=== PATIENT | male | born 1955 | race Two or more races ===

== ENCOUNTER 2020-03-14 16:09 | Inpatient (IN) | payer OTHER ==
[2020-03-14] VITALS (10 sets, daily range): BP systolic 95–193; BP diastolic 43–94
[~2020-03-14] VITALS: Ht 182.9 cm; Wt 108.4 kg
[2020-03-14] MEDS ORDERED: DEXTROSE 50%-WATER 25 GM/50 ML SYRINGE IVP PRN (17:45)
[2020-03-14] MEDS ORDERED: ACETAMINOPHEN 325 MG TABLET PO PRN ×2 (17:45→18:15)
[2020-03-14] MEDS ORDERED: WARFARIN SODIUM 2 MG TABLET PO SCH (18:15)
[2020-03-14 18:58] LABS: GLUCOMETER DEV NAME(LOC) 6N.1; GLUCOSE,POINT OF CARE 188 MG/DL (70-110)
[2020-03-14] MEDS: INSULIN LISPRO 100 UNITS/ML SQ PRN ×2 (19:01→21:14)
[2020-03-14] MEDS: INSULIN LISPRO 100 UNITS/ML SQ SCH (19:57)
[2020-03-14] MEDS: CARVEDILOL 3.125 MG TABLET PO SCH ×3 (21:00→23:20)
[2020-03-14] MEDS: SACUBITRIL/VALSARTAN 49-51 MG TABLET PO SCH ×3 (21:00→23:20)
[2020-03-14] MEDS: INSULIN GLARGINE,HUM.REC.ANLOG 100 UNITS/ML SQ SCH (21:14)
[2020-03-14] MEDS: FAMOTIDINE 20 MG TABLET PO SCH (21:17)
[2020-03-14] MEDS: ATORVASTATIN CALCIUM 40 MG TABLET PO SCH (21:17)
[2020-03-14] MEDS: SENNA 187 MG TABLET PO SCH (21:17)
[2020-03-14] MEDS: SODIUM CHLORIDE 1 GM TABLET PO SCH (21:17)
[2020-03-14] MEDS: DOCUSATE SODIUM 100 MG CAPSULE PO SCH (21:17)
[2020-03-14] MEDS: LevETIRAcetam 250 MG TABLET PO SCH (21:18)
[2020-03-14 23:28] LABS: GLUCOMETER DEV NAME(LOC) 6N.1; GLUCOSE,POINT OF CARE 215 MG/DL (70-110)
[2020-03-15 06:55] LABS: GLUCOMETER DEV NAME(LOC) 6N.1; GLUCOSE,POINT OF CARE 198 MG/DL (70-110)
[2020-03-15] MEDS ORDERED: INSULIN LISPRO 100 UNITS/ML SQ SCH ×2 (07:00→07:30)
[2020-03-15 07:47] LABS: BASOPHILS % (AUTO) 0.1 % (0.0-2.0); EOSINOPHILS % (AUTO) 0.7 % (1.0-6.0); HEMATOCRIT 21.1 % (41-53); LYMPHOCYTES # (AUTO) 0.9 K/uL (1.0-4.8); LYMPHOCYTES % (AUTO) 22.2 % (22.0-44.0); MEAN CORPUSCULAR HEMOGLOBIN 26.3 pg (26.0-34.0); MEAN CORPUSCULAR HGB CONC 33.2 G/dL (31.0-37.0); MEAN CORPUSCULAR VOLUME 79 fL (80-100); MONOCYTES # (AUTO) 0.4 K/uL (0.1-1.0); MONOCYTES % (AUTO) 8.6 % (2.0-9.0); NEUTROPHILS # (AUTO) 2.8 K/uL (1.8-7.7); NEUTROPHILS % (AUTO) 68.4 % (40.0-70.0); RED BLOOD CELL COUNT(AUTO) 2.67 MIL/uL (4.50-5.90); RED CELL DISTRIBUTION WIDTH 16.1 % (11.5-14.5)
[2020-03-15 08:00] LABS: ALANINE AMINOTRANSFERASE 47 U/L (12-78); ALBUMIN 2.4 g/dL (3.4-5.0); ALKALINE PHOSPHATASE 88 U/L (46-116); ANION GAP 5 mmol/L (8-16); ASPARTATE AMINOTRANSFERASE 39 U/L (15-37); BILIRUBIN,TOTAL 0.4 mg/dL (0.1-1.0); CALCIUM, TOTAL 7.9 mg/dL (8.8-10.5); CARBON DIOXIDE 29 mmol/L (22-29); CHLORIDE 105 mmol/L (98-107); CREATININE 1.11 mg/dL (0.60-1.30); GLOMERULAR FILTR. RATE CALC > 60 mL/min (>60); GLUCOSE,RANDOM 231 mg/dL (70-110); POTASSIUM 4.8 mmol/L (3.5-5.1); SODIUM SERUM 139 mmol/L (136-145); TOTAL PROTEIN, SERUM 4.9 g/dL (6.4-8.2); UREA NITROGEN, BLOOD 37 mg/dL (7-18)
[2020-03-15 08:11] LABS: INR 2.1 (0.9-1.1); PROTHROMBIN TIME 20.9 SEC (9.4-11.6)
[2020-03-15] MEDS: AMIODARONE HCL 200 MG TABLET PO SCH (09:11)
[2020-03-15] MEDS: FAMOTIDINE 20 MG TABLET PO SCH ×2 (09:11→20:56)
[2020-03-15] MEDS: ASPIRIN 81 MG EC TABLET PO SCH (09:11)
[2020-03-15] MEDS: SODIUM CHLORIDE 1 GM TABLET PO SCH ×3 (09:11→21:15)
[2020-03-15] MEDS: SACUBITRIL/VALSARTAN 49-51 MG TABLET PO SCH ×2 (09:12→22:11)
[2020-03-15] MEDS: FUROSEMIDE 40 MG TABLET PO SCH (09:12)
[2020-03-15] MEDS: POTASSIUM CHLORIDE 20 MEQ ER TABLET PO SCH (09:12)
[2020-03-15] MEDS: DOCUSATE SODIUM 100 MG CAPSULE PO SCH ×2 (09:13→20:56)
[2020-03-15] MEDS: LevETIRAcetam 250 MG TABLET PO SCH ×2 (09:13→20:57)
[2020-03-15] MEDS: DEXAMETHASONE 2 MG TABLET PO SCH ×2 (09:13→20:56)
[2020-03-15] MEDS: CARVEDILOL 3.125 MG TABLET PO SCH ×2 (09:14→20:57)
[2020-03-15] MEDS: INSULIN LISPRO 100 UNITS/ML SQ SCH ×3 (09:17→16:49)
[2020-03-15] MEDS: INSULIN LISPRO 100 UNITS/ML SQ PRN ×4 (09:18→21:04)
[2020-03-15 09:30] VITALS: BP 113/48
[2020-03-15 10:30] VITALS: BP 101/58
[2020-03-15 11:43] LABS: PLATELET COUNT (AUTO) 53 K/uL (150-450)
[2020-03-15 12:11] LABS: GLUCOMETER DEV NAME(LOC) 6N.1; GLUCOSE,POINT OF CARE 176 MG/DL (70-110)
[2020-03-15 15:00] VITALS: BP 127/60
[2020-03-15 15:33] LABS: BASOPHILS % (AUTO) 0.2 % (0.0-2.0); EOSINOPHILS % (AUTO) 0.6 % (1.0-6.0); HEMATOCRIT 25.4 % (41-53); HEMOGLOBIN 8.4 g/dL (13.5-17.5); LYMPHOCYTES # (AUTO) 0.5 K/uL (1.0-4.8); LYMPHOCYTES % (AUTO) 11.4 % (22.0-44.0); MEAN CORPUSCULAR HEMOGLOBIN 26.4 pg (26.0-34.0); MEAN CORPUSCULAR VOLUME 80 fL (80-100); MONOCYTES # (AUTO) 0.3 K/uL (0.1-1.0); MONOCYTES % (AUTO) 6.5 % (2.0-9.0); NEUTROPHILS # (AUTO) 3.8 K/uL (1.8-7.7); NEUTROPHILS % (AUTO) 81.3 % (40.0-70.0); RED BLOOD CELL COUNT(AUTO) 3.18 MIL/uL (4.50-5.90); RED CELL DISTRIBUTION WIDTH 15.6 % (11.5-14.5)
[2020-03-15] MEDS ORDERED: *CLINICAL-WARFARIN SODIUM DOSING CLINICAL ONE (16:15)
[2020-03-15 16:16] LABS: PLATELET COUNT (AUTO) 58 K/uL (150-450)
[2020-03-15] MEDS ORDERED: WARFARIN SODIUM 2 MG TABLET PO SCH (17:00)
[2020-03-15 17:50] LABS: GLUCOMETER DEV NAME(LOC) 6N.1; GLUCOSE,POINT OF CARE 263 MG/DL (70-110)
[2020-03-15 20:50] VITALS: BP 143/58
[2020-03-15] MEDS: SENNA 187 MG TABLET PO SCH (20:56)
[2020-03-15] MEDS: INSULIN GLARGINE,HUM.REC.ANLOG 100 UNITS/ML SQ SCH (21:03)
[2020-03-15] MEDS: ATORVASTATIN CALCIUM 40 MG TABLET PO SCH (21:15)
[2020-03-15 22:46] LABS: GLUCOMETER DEV NAME(LOC) 6N.1; GLUCOSE,POINT OF CARE 205 MG/DL (70-110)
[2020-03-16] VITALS: BP 136/52
[2020-03-16 07:30] VITALS: BP_SYST 118; BP_SYST 18; BP_DIAS 44
[2020-03-16 08:09] LABS: BASOPHILS % (AUTO) 0.1 % (0.0-2.0); EOSINOPHILS % (AUTO) 0.2 % (1.0-6.0); LYMPHOCYTES # (AUTO) 0.6 K/uL (1.0-4.8); LYMPHOCYTES % (AUTO) 13.8 % (22.0-44.0); MEAN CORPUSCULAR HEMOGLOBIN 25.9 pg (26.0-34.0); MEAN CORPUSCULAR HGB CONC 32.7 G/dL (31.0-37.0); MEAN CORPUSCULAR VOLUME 79 fL (80-100); MONOCYTES # (AUTO) 0.3 K/uL (0.1-1.0); MONOCYTES % (AUTO) 8.2 % (2.0-9.0); NEUTROPHILS # (AUTO) 3.1 K/uL (1.8-7.7); NEUTROPHILS % (AUTO) 77.7 % (40.0-70.0); PLATELET COUNT (AUTO) 43 K/uL (150-450); RED BLOOD CELL COUNT(AUTO) 2.59 MIL/uL (4.50-5.90); RED CELL DISTRIBUTION WIDTH 15.9 % (11.5-14.5)
[2020-03-16 08:18] LABS: PROTHROMBIN TIME 20.6 SEC (9.4-11.6)
[2020-03-16] MEDS: INSULIN LISPRO 100 UNITS/ML SQ SCH ×3 (08:33→17:27)
[2020-03-16] MEDS: INSULIN LISPRO 100 UNITS/ML SQ PRN ×4 (08:34→20:43)
[2020-03-16 08:35] LABS: ALANINE AMINOTRANSFERASE 54 U/L (12-78); ALBUMIN 2.5 g/dL (3.4-5.0); ALKALINE PHOSPHATASE 88 U/L (46-116); ANION GAP 3 mmol/L (8-16); ASPARTATE AMINOTRANSFERASE 38 U/L (15-37); BILIRUBIN,TOTAL 0.5 mg/dL (0.1-1.0); CALCIUM, TOTAL 8.1 mg/dL (8.8-10.5); CARBON DIOXIDE 30 mmol/L (22-29); CHLORIDE 105 mmol/L (98-107); CREATININE 1.07 mg/dL (0.60-1.30); GLOMERULAR FILTR. RATE CALC > 60 mL/min (>60); GLUCOSE,RANDOM 206 mg/dL (70-110); SODIUM SERUM 138 mmol/L (136-145); TOTAL PROTEIN, SERUM 4.8 g/dL (6.4-8.2); UREA NITROGEN, BLOOD 36 mg/dL (7-18)
[2020-03-16 08:45] VITALS: BP 113/52
[2020-03-16] MEDS: FAMOTIDINE 20 MG TABLET PO SCH (08:50)
[2020-03-16] MEDS: AMIODARONE HCL 200 MG TABLET PO SCH (08:51)
[2020-03-16] MEDS: DOCUSATE SODIUM 100 MG CAPSULE PO SCH ×2 (08:51→20:40)
[2020-03-16] MEDS: ASPIRIN 81 MG EC TABLET PO SCH (08:51)
[2020-03-16] MEDS: LevETIRAcetam 250 MG TABLET PO SCH ×2 (08:51→20:39)
[2020-03-16] MEDS: SACUBITRIL/VALSARTAN 49-51 MG TABLET PO SCH ×2 (08:51→20:40)
[2020-03-16] MEDS: POTASSIUM CHLORIDE 20 MEQ ER TABLET PO SCH (08:51)
[2020-03-16] MEDS: CARVEDILOL 3.125 MG TABLET PO SCH ×2 (08:51→20:40)
[2020-03-16] MEDS: SODIUM CHLORIDE 1 GM TABLET PO SCH ×3 (08:51→20:40)
[2020-03-16] MEDS: DEXAMETHASONE 2 MG TABLET PO SCH ×2 (08:52→20:40)
[2020-03-16] MEDS: FUROSEMIDE 40 MG TABLET PO SCH (08:52)
[2020-03-16 08:56] LABS: HEMATOCRIT 20.5 % (41-53); HEMOGLOBIN 6.7 g/dL (13.5-17.5)
[2020-03-16] MEDS: EPOETIN ALFA 10,000 UNITS/ML VIAL SQ SCH (09:35)
[2020-03-16 12:43] LABS: GLUCOMETER DEV NAME(LOC) 6N.1; GLUCOSE,POINT OF CARE 256 MG/DL (70-110)
[2020-03-16 12:43] LABS: GLUCOMETER DEV NAME(LOC) 6N.1; GLUCOSE,POINT OF CARE 195 MG/DL (70-110)
[2020-03-16] MEDS: PANTOPRAZOLE SODIUM 40 MG DR TABLET PO SCH ×2 (12:57→20:39)
[2020-03-16] MEDS ORDERED: PERFLUTREN PROTEIN-A MICROSPHERES 0.22 MG/ML 3 ML VIAL IVP ONE (13:00)
[2020-03-16 15:51] VITALS: BP 143/49
[2020-03-16 18:17] LABS: GLUCOMETER DEV NAME(LOC) 6N.1; GLUCOSE,POINT OF CARE 240 MG/DL (70-110)
[2020-03-16 20:34] VITALS: BP 121/55
[2020-03-16] MEDS: ATORVASTATIN CALCIUM 40 MG TABLET PO SCH (20:39)
[2020-03-16] MEDS: SENNA 187 MG TABLET PO SCH (20:40)
[2020-03-16] MEDS: INSULIN GLARGINE,HUM.REC.ANLOG 100 UNITS/ML SQ SCH (20:41)
[2020-03-16 20:51] LABS: BASOPHILS % (AUTO) 0.1 % (0.0-2.0); EOSINOPHILS % (AUTO) 0 % (1.0-6.0); LYMPHOCYTES # (AUTO) 0.5 K/uL (1.0-4.8); LYMPHOCYTES % (AUTO) 14.9 % (22.0-44.0); MEAN CORPUSCULAR HEMOGLOBIN 25.9 pg (26.0-34.0); MEAN CORPUSCULAR HGB CONC 32.7 G/dL (31.0-37.0); MEAN CORPUSCULAR VOLUME 79 fL (80-100); MONOCYTES # (AUTO) 0.3 K/uL (0.1-1.0); MONOCYTES % (AUTO) 9.2 % (2.0-9.0); NEUTROPHILS # (AUTO) 2.6 K/uL (1.8-7.7); NEUTROPHILS % (AUTO) 75.8 % (40.0-70.0); RED BLOOD CELL COUNT(AUTO) 2.64 MIL/uL (4.50-5.90); RED CELL DISTRIBUTION WIDTH 16.1 % (11.5-14.5)
[2020-03-16 20:58] LABS: HEMOGLOBIN 6.9 g/dL (13.5-17.5)
[2020-03-16 20:59] LABS: PLATELET COUNT (AUTO) 42 K/uL (150-450)
[2020-03-16] MEDS ORDERED: DiphenhydrAMINE HCL 25 MG CAPSULE PO ONE (21:15)
[2020-03-16] MEDS ORDERED: FUROSEMIDE 40 MG/4 ML VIAL IVP ONE (21:15)
[2020-03-16] MEDS ORDERED: SODIUM CHLORIDE 0.9% 500 ML IV ONE (23:10)
[2020-03-16 23:16] LABS: GLUCOMETER DEV NAME(LOC) 6N.1; GLUCOSE,POINT OF CARE 243 MG/DL (70-110)
[2020-03-16 23:50] VITALS: BP 158/70
[2020-03-17] VITALS (15 sets, daily range): BP systolic 105–158; BP diastolic 46–73
[2020-03-17] MEDS ORDERED: FUROSEMIDE 20 MG/2 ML VIAL IVP ONE (00:15)
[2020-03-17 06:09] LABS: GLUCOMETER DEV NAME(LOC) 6N.1; GLUCOSE,POINT OF CARE 207 MG/DL (70-110)
[2020-03-17 07:41] LABS: BASOPHILS % (AUTO) 0.2 % (0.0-2.0); EOSINOPHILS % (AUTO) 0 % (1.0-6.0); HEMATOCRIT 24.2 % (41-53); HEMOGLOBIN 8.4 g/dL (13.5-17.5); LYMPHOCYTES # (AUTO) 0.5 K/uL (1.0-4.8); LYMPHOCYTES % (AUTO) 12.5 % (22.0-44.0); MEAN CORPUSCULAR HEMOGLOBIN 28.1 pg (26.0-34.0); MEAN CORPUSCULAR HGB CONC 34.7 G/dL (31.0-37.0); MEAN CORPUSCULAR VOLUME 81 fL (80-100); MONOCYTES # (AUTO) 0.3 K/uL (0.1-1.0); MONOCYTES % (AUTO) 7.7 % (2.0-9.0); NEUTROPHILS # (AUTO) 3.3 K/uL (1.8-7.7); NEUTROPHILS % (AUTO) 79.6 % (40.0-70.0); PLATELET COUNT (AUTO) 42 K/uL (150-450); RED BLOOD CELL COUNT(AUTO) 2.99 MIL/uL (4.50-5.90); RED CELL DISTRIBUTION WIDTH 16.6 % (11.5-14.5)
[2020-03-17 07:50] LABS: INR 2.1 (0.9-1.1); PROTHROMBIN TIME 21.1 SEC (9.4-11.6)
[2020-03-17] MEDS: INSULIN LISPRO 100 UNITS/ML SQ SCH ×3 (08:02→16:53)
[2020-03-17] MEDS: INSULIN LISPRO 100 UNITS/ML SQ PRN ×4 (08:04→20:55)
[2020-03-17] MEDS: PANTOPRAZOLE SODIUM 40 MG DR TABLET PO SCH ×2 (08:11→20:52)
[2020-03-17] MEDS: SACUBITRIL/VALSARTAN 49-51 MG TABLET PO SCH ×2 (08:11→20:52)
[2020-03-17] MEDS: CARVEDILOL 3.125 MG TABLET PO SCH (08:11)
[2020-03-17] MEDS: FUROSEMIDE 40 MG TABLET PO SCH (08:11)
[2020-03-17] MEDS: DOCUSATE SODIUM 100 MG CAPSULE PO SCH ×2 (08:11→20:52)
[2020-03-17] MEDS: SODIUM CHLORIDE 1 GM TABLET PO SCH ×3 (08:11→20:51)
[2020-03-17] MEDS: LevETIRAcetam 250 MG TABLET PO SCH ×2 (08:11→20:51)
[2020-03-17] MEDS: DEXAMETHASONE 2 MG TABLET PO SCH ×2 (08:11→20:52)
[2020-03-17] MEDS: AMIODARONE HCL 200 MG TABLET PO SCH (08:12)
[2020-03-17] MEDS: POTASSIUM CHLORIDE 20 MEQ ER TABLET PO SCH (08:12)
[2020-03-17 08:13] LABS: ALBUMIN 2.7 g/dL (3.4-5.0); BILIRUBIN,TOTAL 0.7 mg/dL (0.1-1.0); CALCIUM, TOTAL 8.2 mg/dL (8.8-10.5); CREATININE 1.22 mg/dL (0.60-1.30); MAGNESIUM 1.8 mg/dL (1.80-2.40); POTASSIUM 4.7 mmol/L (3.5-5.1); TOTAL PROTEIN, SERUM 5.4 g/dL (6.4-8.2)
[2020-03-17 12:18] LABS: GLUCOMETER DEV NAME(LOC) 6N.1; GLUCOSE,POINT OF CARE 246 MG/DL (70-110)
[2020-03-17] MEDS: WARFARIN SODIUM 2 MG TABLET PO SCH (16:51)
[2020-03-17 17:11] LABS: GLUCOMETER DEV NAME(LOC) 6N.1; GLUCOSE,POINT OF CARE 255 MG/DL (70-110)
[2020-03-17] MEDS: ATORVASTATIN CALCIUM 40 MG TABLET PO SCH (20:52)
[2020-03-17] MEDS: SENNA 187 MG TABLET PO SCH (20:52)
[2020-03-17] MEDS: CARVEDILOL 6.25 MG TABLET PO SCH (20:53)
[2020-03-17] MEDS: INSULIN GLARGINE,HUM.REC.ANLOG 100 UNITS/ML SQ SCH (20:56)
[2020-03-17 22:19] LABS: GLUCOMETER DEV NAME(LOC) 6N.1; GLUCOSE,POINT OF CARE 310 MG/DL (70-110)
[2020-03-18 06:37] LABS: GLUCOMETER DEV NAME(LOC) 6N.1; GLUCOSE,POINT OF CARE 200 MG/DL (70-110)
[2020-03-18 07:38] LABS: BASOPHILS % (AUTO) 0.1 % (0.0-2.0); EOSINOPHILS % (AUTO) 0.1 % (1.0-6.0); HEMATOCRIT 23.8 % (41-53); HEMOGLOBIN 7.9 g/dL (13.5-17.5); LYMPHOCYTES # (AUTO) 0.5 K/uL (1.0-4.8); LYMPHOCYTES % (AUTO) 12.7 % (22.0-44.0); MEAN CORPUSCULAR HEMOGLOBIN 27.1 pg (26.0-34.0); MEAN CORPUSCULAR HGB CONC 33.4 G/dL (31.0-37.0); MEAN CORPUSCULAR VOLUME 81 fL (80-100); MONOCYTES # (AUTO) 0.3 K/uL (0.1-1.0); MONOCYTES % (AUTO) 7.7 % (2.0-9.0); NEUTROPHILS % (AUTO) 79.4 % (40.0-70.0); PLATELET COUNT (AUTO) 39 K/uL (150-450); RED BLOOD CELL COUNT(AUTO) 2.93 MIL/uL (4.50-5.90); RED CELL DISTRIBUTION WIDTH 16.5 % (11.5-14.5)
[2020-03-18 07:40] VITALS: BP 138/73
[2020-03-18 07:54] LABS: PROTHROMBIN TIME 20.6 SEC (9.4-11.6)
[2020-03-18] MEDS: DOCUSATE SODIUM 100 MG CAPSULE PO SCH ×2 (08:22→20:12)
[2020-03-18] MEDS: AMIODARONE HCL 200 MG TABLET PO SCH (08:22)
[2020-03-18] MEDS: POTASSIUM CHLORIDE 20 MEQ ER TABLET PO SCH (08:22)
[2020-03-18] MEDS: DEXAMETHASONE 2 MG TABLET PO SCH (08:22)
[2020-03-18] MEDS: FUROSEMIDE 40 MG TABLET PO SCH (08:22)
[2020-03-18] MEDS: SODIUM CHLORIDE 1 GM TABLET PO SCH ×3 (08:22→20:12)
[2020-03-18] MEDS: LevETIRAcetam 250 MG TABLET PO SCH ×2 (08:22→20:11)
[2020-03-18] MEDS: PANTOPRAZOLE SODIUM 40 MG DR TABLET PO SCH ×2 (08:22→20:12)
[2020-03-18] MEDS: EPOETIN ALFA 10,000 UNITS/ML VIAL SQ SCH (08:23)
[2020-03-18] MEDS: SACUBITRIL/VALSARTAN 49-51 MG TABLET PO SCH ×2 (08:23→21:17)
[2020-03-18] MEDS: CARVEDILOL 6.25 MG TABLET PO SCH ×2 (08:24→20:11)
[2020-03-18] MEDS: INSULIN LISPRO 100 UNITS/ML SQ SCH ×3 (08:25→16:50)
[2020-03-18] MEDS: INSULIN LISPRO 100 UNITS/ML SQ PRN ×4 (08:26→21:19)
[2020-03-18 12:29] LABS: GLUCOMETER DEV NAME(LOC) 6N.1; GLUCOSE,POINT OF CARE 233 MG/DL (70-110)
[2020-03-18 15:01] VITALS: BP 148/72
[2020-03-18] MEDS: WARFARIN SODIUM 2 MG TABLET PO SCH (16:53)
[2020-03-18 17:33] LABS: GLUCOMETER DEV NAME(LOC) 6N.1; GLUCOSE,POINT OF CARE 177 MG/DL (70-110)
[2020-03-18 20:09] VITALS: BP 129/63
[2020-03-18] MEDS: ATORVASTATIN CALCIUM 40 MG TABLET PO SCH (20:11)
[2020-03-18] MEDS: SENNA 187 MG TABLET PO SCH (20:12)
[2020-03-18] MEDS: INSULIN GLARGINE,HUM.REC.ANLOG 100 UNITS/ML SQ SCH (21:19)
[2020-03-19 00:37] VITALS: BP 120/43
[2020-03-19 05:03] LABS: GLUCOMETER DEV NAME(LOC) 6N.1; GLUCOSE,POINT OF CARE 199 MG/DL (70-110)
[2020-03-19 06:36] LABS: GLUCOMETER DEV NAME(LOC) 6N.1; GLUCOSE,POINT OF CARE 145 MG/DL (70-110)
[2020-03-19 07:21] VITALS: BP 116/63
[2020-03-19] MEDS: INSULIN LISPRO 100 UNITS/ML SQ SCH ×3 (07:44→17:51)
[2020-03-19] MEDS: INSULIN LISPRO 100 UNITS/ML SQ PRN ×2 (07:46→21:24)
[2020-03-19] MEDS: DOCUSATE SODIUM 100 MG CAPSULE PO SCH ×2 (08:05→21:21)
[2020-03-19] MEDS: CARVEDILOL 6.25 MG TABLET PO SCH ×2 (08:05→21:00)
[2020-03-19] MEDS: SACUBITRIL/VALSARTAN 49-51 MG TABLET PO SCH ×2 (08:06→21:58)
[2020-03-19] MEDS: LevETIRAcetam 250 MG TABLET PO SCH ×2 (08:07→21:20)
[2020-03-19] MEDS: FUROSEMIDE 40 MG TABLET PO SCH (08:08)
[2020-03-19] MEDS: POTASSIUM CHLORIDE 20 MEQ ER TABLET PO SCH (08:08)
[2020-03-19] MEDS: AMIODARONE HCL 200 MG TABLET PO SCH (08:09)
[2020-03-19] MEDS: PANTOPRAZOLE SODIUM 40 MG DR TABLET PO SCH ×2 (08:09→21:21)
[2020-03-19] MEDS: SODIUM CHLORIDE 1 GM TABLET PO SCH ×3 (08:09→21:20)
[2020-03-19 09:03] VITALS: BP 138/62
[2020-03-19 10:51] LABS: PROTHROMBIN TIME 20.5 SEC (9.4-11.6)
[2020-03-19 12:38] LABS: GLUCOMETER DEV NAME(LOC) 6N.1; GLUCOSE,POINT OF CARE 131 MG/DL (70-110)
[2020-03-19 14:10] LABS: GLUCOMETER DEV NAME(LOC) 6N.1; GLUCOSE,POINT OF CARE 101 MG/DL (70-110)
[2020-03-19 15:21] VITALS: BP 139/47
[2020-03-19 18:03] LABS: GLUCOMETER DEV NAME(LOC) 6N.1; GLUCOSE,POINT OF CARE 78 MG/DL (70-110)
[2020-03-19] MEDS: ATORVASTATIN CALCIUM 40 MG TABLET PO SCH (21:20)
[2020-03-19] MEDS: SENNA 187 MG TABLET PO SCH (21:20)
[2020-03-19] MEDS: INSULIN GLARGINE,HUM.REC.ANLOG 100 UNITS/ML SQ SCH (21:23)
[2020-03-19 22:00] VITALS: BP 106/55
[2020-03-19 22:34] VITALS: BP 109/52
[2020-03-20] VITALS (9 sets, daily range): BP systolic 104–133; BP diastolic 48–67
[2020-03-20 00:09] LABS: GLUCOMETER DEV NAME(LOC) 6N.1; GLUCOSE,POINT OF CARE 149 MG/DL (70-110)
[2020-03-20 06:17] LABS: GLUCOMETER DEV NAME(LOC) 6N.1; GLUCOSE,POINT OF CARE 71 MG/DL (70-110)
[2020-03-20] MEDS: INSULIN LISPRO 100 UNITS/ML SQ SCH ×3 (07:00→17:32)
[2020-03-20] MEDS: EPOETIN ALFA 10,000 UNITS/ML VIAL SQ SCH (08:07)
[2020-03-20] MEDS: DOCUSATE SODIUM 100 MG CAPSULE PO SCH ×2 (08:15→21:23)
[2020-03-20] MEDS: SODIUM CHLORIDE 1 GM TABLET PO SCH ×3 (08:18→21:22)
[2020-03-20] MEDS: PANTOPRAZOLE SODIUM 40 MG DR TABLET PO SCH ×2 (08:18→21:23)
[2020-03-20] MEDS: AMIODARONE HCL 200 MG TABLET PO SCH (08:19)
[2020-03-20] MEDS: FUROSEMIDE 40 MG TABLET PO SCH (08:21)
[2020-03-20] MEDS: LevETIRAcetam 250 MG TABLET PO SCH ×2 (08:29→21:22)
[2020-03-20 08:47] LABS: GLUCOMETER DEV NAME(LOC) 6N.1; GLUCOSE,POINT OF CARE 88 MG/DL (70-110)
[2020-03-20 09:44] LABS: BASOPHILS % (AUTO) 0.4 % (0.0-2.0); EOSINOPHILS % (AUTO) 2.8 % (1.0-6.0); HEMATOCRIT 27.1 % (41-53); HEMOGLOBIN 8.9 g/dL (13.5-17.5); LYMPHOCYTES # (AUTO) 1.9 K/uL (1.0-4.8); LYMPHOCYTES % (AUTO) 25.9 % (22.0-44.0); MEAN CORPUSCULAR HEMOGLOBIN 27.2 pg (26.0-34.0); MEAN CORPUSCULAR HGB CONC 32.7 G/dL (31.0-37.0); MEAN CORPUSCULAR VOLUME 83 fL (80-100); MONOCYTES # (AUTO) 0.4 K/uL (0.1-1.0); MONOCYTES % (AUTO) 5.7 % (2.0-9.0); NEUTROPHILS # (AUTO) 4.8 K/uL (1.8-7.7); NEUTROPHILS % (AUTO) 65.2 % (40.0-70.0); RED BLOOD CELL COUNT(AUTO) 3.26 MIL/uL (4.50-5.90); RED CELL DISTRIBUTION WIDTH 17.8 % (11.5-14.5)
[2020-03-20 09:49] LABS: INR 1.9 (0.9-1.1)
[2020-03-20 09:56] LABS: ALBUMIN 2.7 g/dL (3.4-5.0); BILIRUBIN,TOTAL 0.7 mg/dL (0.1-1.0); CALCIUM, TOTAL 7.7 mg/dL (8.8-10.5); CREATININE 1.4 mg/dL (0.60-1.30); MAGNESIUM 1.6 mg/dL (1.80-2.40); POTASSIUM 4.6 mmol/L (3.5-5.1); TOTAL PROTEIN, SERUM 5.3 g/dL (6.4-8.2)
[2020-03-20] MEDS: SACUBITRIL/VALSARTAN 24-26 MG TABLET PO SCH ×2 (09:58→21:25)
[2020-03-20] MEDS: CARVEDILOL 6.25 MG TABLET PO SCH ×2 (09:59→21:00)
[2020-03-20] MEDS: POTASSIUM CHLORIDE 20 MEQ ER TABLET PO SCH (10:00)
[2020-03-20 10:54] LABS: PLATELET COUNT (AUTO) 74 K/uL (150-450)
[2020-03-20 16:20] LABS: GLUCOMETER DEV NAME(LOC) 6N.1; GLUCOSE,POINT OF CARE 107 MG/DL (70-110)
[2020-03-20 16:20] LABS: GLUCOMETER DEV NAME(LOC) 6N.1; GLUCOSE,POINT OF CARE 116 MG/DL (70-110)
[2020-03-20] MEDS: SENNA 187 MG TABLET PO SCH (21:22)
[2020-03-20] MEDS: MAGNESIUM OXIDE 400 MG TABLET PO SCH (21:22)
[2020-03-20] MEDS: ATORVASTATIN CALCIUM 40 MG TABLET PO SCH (21:22)
[2020-03-20] MEDS: INSULIN GLARGINE,HUM.REC.ANLOG 100 UNITS/ML SQ SCH (21:31)
[2020-03-20 22:41] LABS: GLUCOMETER DEV NAME(LOC) 6N.1; GLUCOSE,POINT OF CARE 106 MG/DL (70-110)
[2020-03-20] MEDS: 0.9% SODIUM CHLORIDE 10 ML SYRINGE IVP SCH (23:28)
[2020-03-20] MEDS ORDERED: CARV3 PO (23:58)
[2020-03-20] MEDS ORDERED: METF-911 PO (23:58)
[2020-03-20] MEDS ORDERED: FURO40 PO (23:58)
[2020-03-20] MEDS ORDERED: SACU1TAB PO (23:58)
[2020-03-20] MEDS ORDERED: LISI-660 PO (23:58)
[2020-03-21 05:39] LABS: GLUCOMETER DEV NAME(LOC) 6N.1; GLUCOSE,POINT OF CARE 152 MG/DL (70-110)
[2020-03-21 07:13] VITALS: BP 124/60
[2020-03-21 07:25] LABS: INR 1.5 (0.9-1.1); PROTHROMBIN TIME 14.8 SEC (9.4-11.6)
[2020-03-21] MEDS: FUROSEMIDE 40 MG TABLET PO SCH (07:55)
[2020-03-21] MEDS: SACUBITRIL/VALSARTAN 24-26 MG TABLET PO SCH ×2 (07:56→20:48)
[2020-03-21] MEDS: SODIUM CHLORIDE 1 GM TABLET PO SCH ×3 (07:57→20:49)
[2020-03-21] MEDS: LevETIRAcetam 250 MG TABLET PO SCH ×2 (07:58→20:49)
[2020-03-21] MEDS: CARVEDILOL 6.25 MG TABLET PO SCH ×2 (07:59→20:49)
[2020-03-21] MEDS: AMIODARONE HCL 200 MG TABLET PO SCH (08:00)
[2020-03-21] MEDS: 0.9% SODIUM CHLORIDE 10 ML SYRINGE IVP SCH ×3 (08:00→23:12)
[2020-03-21] MEDS: MAGNESIUM OXIDE 400 MG TABLET PO SCH ×2 (08:00→20:48)
[2020-03-21] MEDS: POTASSIUM CHLORIDE 20 MEQ ER TABLET PO SCH (08:01)
[2020-03-21] MEDS: DOCUSATE SODIUM 100 MG CAPSULE PO SCH ×2 (08:01→20:49)
[2020-03-21] MEDS: PANTOPRAZOLE SODIUM 40 MG DR TABLET PO SCH ×2 (08:01→20:49)
[2020-03-21] MEDS: INSULIN LISPRO 100 UNITS/ML SQ SCH ×4 (08:06→17:23)
[2020-03-21] MEDS: INSULIN LISPRO 100 UNITS/ML SQ PRN ×3 (08:07→17:23)
[2020-03-21] MEDS ORDERED: WARFARIN SODIUM 2 MG TABLET PO SCH (17:00)
[2020-03-21 18:36] LABS: GLUCOMETER DEV NAME(LOC) 6N.1; GLUCOSE,POINT OF CARE 207 MG/DL (70-110)
[2020-03-21 18:36] LABS: GLUCOMETER DEV NAME(LOC) 6N.1; GLUCOSE,POINT OF CARE 158 MG/DL (70-110)
[2020-03-21] MEDS: SENNA 187 MG TABLET PO SCH (20:49)
[2020-03-21] MEDS: ATORVASTATIN CALCIUM 40 MG TABLET PO SCH (20:49)
[2020-03-21] MEDS: MELATONIN 3 MG TABLET PO SCH (20:49)
[2020-03-21] MEDS: INSULIN GLARGINE,HUM.REC.ANLOG 100 UNITS/ML SQ SCH (21:00)
[2020-03-21 22:03] VITALS: BP 111/54
[2020-03-21 22:47] LABS: GLUCOMETER DEV NAME(LOC) 6N.1; GLUCOSE,POINT OF CARE 107 MG/DL (70-110)
[2020-03-21 23:30] VITALS: BP 107/55
[2020-03-22 05:38] LABS: GLUCOMETER DEV NAME(LOC) 6N.1; GLUCOSE,POINT OF CARE 160 MG/DL (70-110)
[2020-03-22 07:45] LABS: BASOPHILS % (AUTO) 0.4 % (0.0-2.0); EOSINOPHILS % (AUTO) 4.9 % (1.0-6.0); HEMATOCRIT 23.3 % (41-53); HEMOGLOBIN 7.4 g/dL (13.5-17.5); LYMPHOCYTES # (AUTO) 0.6 K/uL (1.0-4.8); LYMPHOCYTES % (AUTO) 22.1 % (22.0-44.0); MEAN CORPUSCULAR HEMOGLOBIN 26.8 pg (26.0-34.0); MEAN CORPUSCULAR HGB CONC 31.9 G/dL (31.0-37.0); MEAN CORPUSCULAR VOLUME 84 fL (80-100); MONOCYTES # (AUTO) 0.2 K/uL (0.1-1.0); MONOCYTES % (AUTO) 8.5 % (2.0-9.0); NEUTROPHILS # (AUTO) 1.7 K/uL (1.8-7.7); NEUTROPHILS % (AUTO) 64.1 % (40.0-70.0); PLATELET COUNT (AUTO) 47 K/uL (150-450); RED BLOOD CELL COUNT(AUTO) 2.78 MIL/uL (4.50-5.90); RED CELL DISTRIBUTION WIDTH 19.5 % (11.5-14.5)
[2020-03-22 07:48] VITALS: BP 123/51
[2020-03-22 07:53] LABS: INR 1.3 (0.9-1.1); PROTHROMBIN TIME 12.8 SEC (9.4-11.6)
[2020-03-22] MEDS: LevETIRAcetam 250 MG TABLET PO SCH ×2 (08:15→21:49)
[2020-03-22] MEDS: SODIUM CHLORIDE 1 GM TABLET PO SCH ×3 (08:16→21:51)
[2020-03-22] MEDS: SACUBITRIL/VALSARTAN 24-26 MG TABLET PO SCH ×2 (08:16→23:01)
[2020-03-22] MEDS: DOCUSATE SODIUM 100 MG CAPSULE PO SCH ×2 (08:16→21:49)
[2020-03-22] MEDS: POTASSIUM CHLORIDE 20 MEQ ER TABLET PO SCH (08:17)
[2020-03-22] MEDS: MAGNESIUM OXIDE 400 MG TABLET PO SCH ×2 (08:17→21:49)
[2020-03-22] MEDS: PANTOPRAZOLE SODIUM 40 MG DR TABLET PO SCH ×2 (08:17→21:49)
[2020-03-22] MEDS: AMIODARONE HCL 200 MG TABLET PO SCH (08:17)
[2020-03-22] MEDS: EPOETIN ALFA 10,000 UNITS/ML VIAL SQ SCH (08:18)
[2020-03-22] MEDS: INSULIN LISPRO 100 UNITS/ML SQ SCH ×3 (08:25→18:25)
[2020-03-22] MEDS: INSULIN LISPRO 100 UNITS/ML SQ PRN ×2 (08:26→21:57)
[2020-03-22] MEDS: 0.9% SODIUM CHLORIDE 10 ML SYRINGE IVP SCH ×2 (08:31→16:01)
[2020-03-22 08:41] LABS: ALBUMIN 2.3 g/dL (3.4-5.0); BILIRUBIN,TOTAL 0.7 mg/dL (0.1-1.0); CALCIUM, TOTAL 7.4 mg/dL (8.8-10.5); CREATININE 1.24 mg/dL (0.60-1.30); POTASSIUM 4.4 mmol/L (3.5-5.1); TOTAL PROTEIN, SERUM 4.7 g/dL (6.4-8.2)
[2020-03-22 09:25] VITALS: BP 109/50
[2020-03-22 10:00] VITALS: BP 131/59
[2020-03-22] MEDS: CARVEDILOL 6.25 MG TABLET PO SCH ×2 (10:05→21:50)
[2020-03-22 12:41] LABS: GLUCOMETER DEV NAME(LOC) 6N.1; GLUCOSE,POINT OF CARE 124 MG/DL (70-110)
[2020-03-22 15:00] VITALS: BP 123/62
[2020-03-22 16:33] LABS: GLUCOMETER DEV NAME(LOC) 6N.1; GLUCOSE,POINT OF CARE 126 MG/DL (70-110)
[2020-03-22 21:46] VITALS: BP 115/55
[2020-03-22] MEDS: SENNA 187 MG TABLET PO SCH (21:49)
[2020-03-22] MEDS: MELATONIN 3 MG TABLET PO SCH (21:49)
[2020-03-22] MEDS: ATORVASTATIN CALCIUM 40 MG TABLET PO SCH (21:49)
[2020-03-22] MEDS: INSULIN GLARGINE,HUM.REC.ANLOG 100 UNITS/ML SQ SCH (21:56)
[2020-03-23] VITALS (7 sets, daily range): BP systolic 93–125; BP diastolic 44–64
[2020-03-23] MEDS: 0.9% SODIUM CHLORIDE 10 ML SYRINGE IVP SCH ×3 (00:29→15:36)
[2020-03-23 04:29] LABS: GLUCOMETER DEV NAME(LOC) 6N.1; GLUCOSE,POINT OF CARE 145 MG/DL (70-110)
[2020-03-23 06:20] LABS: GLUCOMETER DEV NAME(LOC) 6N.1; GLUCOSE,POINT OF CARE 68 MG/DL (70-110)
[2020-03-23 06:20] LABS: GLUCOMETER DEV NAME(LOC) 6N.1; GLUCOSE,POINT OF CARE 93 MG/DL (70-110)
[2020-03-23] MEDS: INSULIN LISPRO 100 UNITS/ML SQ SCH ×3 (07:00→17:33)
[2020-03-23] MEDS ORDERED: LIDOCAINE 3% CREAM 85 GM TUBE TP ONE (08:30)
[2020-03-23] MEDS ORDERED: HYDROCODONE/ACETAMINOPHEN 10-325 MG TABLET PO ONE (08:30)
[2020-03-23] MEDS: PANTOPRAZOLE SODIUM 40 MG DR TABLET PO SCH ×2 (08:35→21:40)
[2020-03-23] MEDS: POTASSIUM CHLORIDE 20 MEQ ER TABLET PO SCH (08:35)
[2020-03-23] MEDS: SODIUM CHLORIDE 1 GM TABLET PO SCH ×3 (08:35→21:40)
[2020-03-23] MEDS: LevETIRAcetam 250 MG TABLET PO SCH ×2 (08:35→21:41)
[2020-03-23] MEDS: DOCUSATE SODIUM 100 MG CAPSULE PO SCH ×2 (08:35→21:40)
[2020-03-23] MEDS: MAGNESIUM OXIDE 400 MG TABLET PO SCH ×2 (08:35→21:40)
[2020-03-23 11:10] LABS: HEMATOCRIT 26.2 % (41-53); HEMOGLOBIN 8.3 g/dL (13.5-17.5)
[2020-03-23 11:20] LABS: INR 1.2 (0.9-1.1); PROTHROMBIN TIME 12.7 SEC (9.4-11.6)
[2020-03-23] MEDS: AMIODARONE HCL 200 MG TABLET PO SCH (11:20)
[2020-03-23 12:42] LABS: GLUCOMETER DEV NAME(LOC) 6N.1; GLUCOSE,POINT OF CARE 145 MG/DL (70-110)
[2020-03-23] MEDS: INSULIN LISPRO 100 UNITS/ML SQ PRN (13:08)
[2020-03-23 18:36] LABS: GLUCOMETER DEV NAME(LOC) 6N.1; GLUCOSE,POINT OF CARE 119 MG/DL (70-110)
[2020-03-23] MEDS: MELATONIN 3 MG TABLET PO SCH (21:41)
[2020-03-23] MEDS: CARVEDILOL 3.125 MG TABLET PO SCH (21:41)
[2020-03-23] MEDS: ATORVASTATIN CALCIUM 40 MG TABLET PO SCH (21:41)
[2020-03-23] MEDS: SENNA 187 MG TABLET PO SCH (21:41)
[2020-03-23] MEDS: INSULIN GLARGINE,HUM.REC.ANLOG 100 UNITS/ML SQ SCH (21:45)
[2020-03-24 00:11] LABS: GLUCOMETER DEV NAME(LOC) 6N.1; GLUCOSE,POINT OF CARE 96 MG/DL (70-110)
[2020-03-24] MEDS: 0.9% SODIUM CHLORIDE 10 ML SYRINGE IVP SCH ×4 (00:37→23:31)
[2020-03-24 06:46] LABS: GLUCOMETER DEV NAME(LOC) 6N.1; GLUCOSE,POINT OF CARE 122 MG/DL (70-110)
[2020-03-24] MEDS: INSULIN LISPRO 100 UNITS/ML SQ SCH ×3 (08:06→17:37)
[2020-03-24 08:19] LABS: BASOPHILS % (AUTO) 0.7 % (0.0-2.0); HEMATOCRIT 23.5 % (41-53); HEMOGLOBIN 7.7 g/dL (13.5-17.5); LYMPHOCYTES # (AUTO) 0.5 K/uL (1.0-4.8); LYMPHOCYTES % (AUTO) 22.2 % (22.0-44.0); MEAN CORPUSCULAR HEMOGLOBIN 27.3 pg (26.0-34.0); MEAN CORPUSCULAR HGB CONC 32.7 G/dL (31.0-37.0); MEAN CORPUSCULAR VOLUME 84 fL (80-100); MONOCYTES # (AUTO) 0.3 K/uL (0.1-1.0); NEUTROPHILS # (AUTO) 1.4 K/uL (1.8-7.7); NEUTROPHILS % (AUTO) 59.1 % (40.0-70.0); RED BLOOD CELL COUNT(AUTO) 2.81 MIL/uL (4.50-5.90); RED CELL DISTRIBUTION WIDTH 19.7 % (11.5-14.5)
[2020-03-24 08:37] LABS: ANION GAP 5 mmol/L (8-16); CARBON DIOXIDE 27 mmol/L (22-29); CHLORIDE 108 mmol/L (98-107); CREATININE 1.06 mg/dL (0.60-1.30); GLUCOSE,RANDOM 79 mg/dL (70-110); POTASSIUM 4.4 mmol/L (3.5-5.1); SODIUM SERUM 140 mmol/L (136-145); UREA NITROGEN, BLOOD 29 mg/dL (7-18)
[2020-03-24 08:38] LABS: ALANINE AMINOTRANSFERASE 63 U/L (12-78); ALBUMIN 2.5 g/dL (3.4-5.0); ALKALINE PHOSPHATASE 98 U/L (46-116); ASPARTATE AMINOTRANSFERASE 34 U/L (15-37); BILIRUBIN,TOTAL 0.7 mg/dL (0.1-1.0); CALCIUM, TOTAL 7.3 mg/dL (8.8-10.5); GLOMERULAR FILTR. RATE CALC > 60 mL/min (>60); INR 1.2 (0.9-1.1); PROTHROMBIN TIME 12.4 SEC (9.4-11.6); TOTAL PROTEIN, SERUM 4.7 g/dL (6.4-8.2)
[2020-03-24 08:40] VITALS: BP 130/64
[2020-03-24] MEDS: SODIUM CHLORIDE 1 GM TABLET PO SCH ×3 (08:47→21:17)
[2020-03-24] MEDS: LevETIRAcetam 250 MG TABLET PO SCH ×2 (08:47→21:17)
[2020-03-24] MEDS: EPOETIN ALFA 10,000 UNITS/ML VIAL SQ SCH (08:47)
[2020-03-24] MEDS: POTASSIUM CHLORIDE 20 MEQ ER TABLET PO SCH (08:47)
[2020-03-24] MEDS: AMIODARONE HCL 200 MG TABLET PO SCH (08:48)
[2020-03-24] MEDS: PANTOPRAZOLE SODIUM 40 MG DR TABLET PO SCH ×2 (08:48→21:17)
[2020-03-24] MEDS: DOCUSATE SODIUM 100 MG CAPSULE PO SCH ×2 (08:48→21:17)
[2020-03-24] MEDS: CARVEDILOL 3.125 MG TABLET PO SCH ×2 (08:48→21:17)
[2020-03-24] MEDS: MAGNESIUM OXIDE 400 MG TABLET PO SCH ×2 (08:48→21:17)
[2020-03-24 09:11] LABS: PLATELET COUNT (AUTO) 60 K/uL (150-450)
[2020-03-24 14:27] LABS: GLUCOMETER DEV NAME(LOC) 6N.1; GLUCOSE,POINT OF CARE 70 MG/DL (70-110)
[2020-03-24 15:44] VITALS: BP 148/72
[2020-03-24 16:48] LABS: GLUCOMETER DEV NAME(LOC) 6N.1; GLUCOSE,POINT OF CARE 101 MG/DL (70-110)
[2020-03-24] MEDS: ATORVASTATIN CALCIUM 40 MG TABLET PO SCH (21:16)
[2020-03-24] MEDS: SENNA 187 MG TABLET PO SCH (21:17)
[2020-03-24] MEDS: MELATONIN 3 MG TABLET PO SCH (21:17)
[2020-03-24] MEDS: INSULIN GLARGINE,HUM.REC.ANLOG 100 UNITS/ML SQ SCH (21:22)
[2020-03-24 23:37] LABS: GLUCOMETER DEV NAME(LOC) 6N.1; GLUCOSE,POINT OF CARE 114 MG/DL (70-110)
[2020-03-25] VITALS: BP 132/60
[2020-03-25 05:48] LABS: GLUCOMETER DEV NAME(LOC) 6N.1; GLUCOSE,POINT OF CARE 151 MG/DL (70-110)
[2020-03-25 08:15] LABS: BASOPHILS % (AUTO) 0.6 % (0.0-2.0); EOSINOPHILS % (AUTO) 8.4 % (1.0-6.0); HEMATOCRIT 23.9 % (41-53); HEMOGLOBIN 7.8 g/dL (13.5-17.5); LYMPHOCYTES # (AUTO) 0.5 K/uL (1.0-4.8); MEAN CORPUSCULAR HEMOGLOBIN 27.5 pg (26.0-34.0); MEAN CORPUSCULAR HGB CONC 32.4 G/dL (31.0-37.0); MEAN CORPUSCULAR VOLUME 85 fL (80-100); MONOCYTES # (AUTO) 0.2 K/uL (0.1-1.0); PLATELET COUNT (AUTO) 69 K/uL (150-450); RED BLOOD CELL COUNT(AUTO) 2.82 MIL/uL (4.50-5.90); RED CELL DISTRIBUTION WIDTH 19.7 % (11.5-14.5)
[2020-03-25 08:33] VITALS: BP 125/56
[2020-03-25 08:39] LABS: ALANINE AMINOTRANSFERASE 64 U/L (12-78); ALBUMIN 2.6 g/dL (3.4-5.0); ALKALINE PHOSPHATASE 110 U/L (46-116); ANION GAP 7 mmol/L (8-16); ASPARTATE AMINOTRANSFERASE 34 U/L (15-37); BILIRUBIN,TOTAL 0.7 mg/dL (0.1-1.0); CALCIUM, TOTAL 7.4 mg/dL (8.8-10.5); CARBON DIOXIDE 25 mmol/L (22-29); CHLORIDE 106 mmol/L (98-107); CREATININE 0.94 mg/dL (0.60-1.30); GLOMERULAR FILTR. RATE CALC > 60 mL/min (>60); GLUCOSE,RANDOM 106 mg/dL (70-110); POTASSIUM 4.4 mmol/L (3.5-5.1); SODIUM SERUM 138 mmol/L (136-145); TOTAL PROTEIN, SERUM 4.9 g/dL (6.4-8.2); UREA NITROGEN, BLOOD 25 mg/dL (7-18)
[2020-03-25] MEDS: POTASSIUM CHLORIDE 20 MEQ ER TABLET PO SCH (08:44)
[2020-03-25] MEDS: MAGNESIUM OXIDE 400 MG TABLET PO SCH ×2 (08:44→20:51)
[2020-03-25] MEDS: PANTOPRAZOLE SODIUM 40 MG DR TABLET PO SCH ×2 (08:44→20:51)
[2020-03-25] MEDS: SODIUM CHLORIDE 1 GM TABLET PO SCH ×2 (08:44→20:50)
[2020-03-25] MEDS: AMIODARONE HCL 200 MG TABLET PO SCH (08:44)
[2020-03-25] MEDS ORDERED: AMIO200T68 PO (08:45)
[2020-03-25] MEDS ORDERED: ATOR40TA28 PO (08:45)
[2020-03-25] MEDS ORDERED: PANT-31 PO (08:45)
[2020-03-25] MEDS ORDERED: LEVE250T55 PO (08:45)
[2020-03-25] MEDS ORDERED: INSLAN SQ (08:45)
[2020-03-25] MEDS: CARVEDILOL 3.125 MG TABLET PO SCH ×2 (08:45→20:51)
[2020-03-25] MEDS ORDERED: MELA3TAB82 PO (08:45)
[2020-03-25] MEDS: LevETIRAcetam 250 MG TABLET PO SCH ×2 (08:45→20:51)
[2020-03-25] MEDS: DOCUSATE SODIUM 100 MG CAPSULE PO SCH ×2 (08:45→20:51)
[2020-03-25] MEDS ORDERED: INSU100V SQ (08:45)
[2020-03-25] MEDS ORDERED: DOCU-275 PO (08:45)
[2020-03-25] MEDS: INSULIN LISPRO 100 UNITS/ML SQ SCH ×3 (08:50→17:38)
[2020-03-25] MEDS: INSULIN LISPRO 100 UNITS/ML SQ PRN ×2 (08:50→17:39)
[2020-03-25] MEDS: 0.9% SODIUM CHLORIDE 10 ML SYRINGE IVP SCH ×2 (08:52→17:04)
[2020-03-25 13:37] LABS: GLUCOMETER DEV NAME(LOC) 6N.1; GLUCOSE,POINT OF CARE 81 MG/DL (70-110)
[2020-03-25 15:37] VITALS: BP 146/69
[2020-03-25 16:19] LABS: GLUCOMETER DEV NAME(LOC) 6N.1; GLUCOSE,POINT OF CARE 171 MG/DL (70-110)
[2020-03-25] MEDS: ATORVASTATIN CALCIUM 40 MG TABLET PO SCH (20:51)
[2020-03-25] MEDS: SENNA 187 MG TABLET PO SCH (20:51)
[2020-03-25] MEDS: MELATONIN 3 MG TABLET PO SCH (20:51)
[2020-03-25] MEDS: INSULIN GLARGINE,HUM.REC.ANLOG 100 UNITS/ML SQ SCH (20:54)
[2020-03-25 21:50] LABS: GLUCOMETER DEV NAME(LOC) 6N.1; GLUCOSE,POINT OF CARE 92 MG/DL (70-110)
[2020-03-25 23:33] VITALS: BP 124/57
[2020-03-26] MEDS: 0.9% SODIUM CHLORIDE 10 ML SYRINGE IVP SCH
[2020-03-26 06:12] LABS: GLUCOMETER DEV NAME(LOC) 6N.1; GLUCOSE,POINT OF CARE 104 MG/DL (70-110)
[2020-03-26] MEDS: INSULIN LISPRO 100 UNITS/ML SQ SCH ×3 (07:00→17:52)
[2020-03-26 07:20] VITALS: BP 145/67
[2020-03-26] MEDS: DOCUSATE SODIUM 100 MG CAPSULE PO SCH ×2 (08:27→21:12)
[2020-03-26] MEDS: POTASSIUM CHLORIDE 20 MEQ ER TABLET PO SCH (08:28)
[2020-03-26] MEDS: PANTOPRAZOLE SODIUM 40 MG DR TABLET PO SCH ×2 (08:28→21:12)
[2020-03-26] MEDS: LevETIRAcetam 250 MG TABLET PO SCH ×2 (08:28→21:12)
[2020-03-26] MEDS: MAGNESIUM OXIDE 400 MG TABLET PO SCH ×2 (08:28→21:12)
[2020-03-26] MEDS: SODIUM CHLORIDE 1 GM TABLET PO SCH ×2 (08:29→21:12)
[2020-03-26] MEDS: CARVEDILOL 3.125 MG TABLET PO SCH ×2 (08:29→21:21)
[2020-03-26 08:31] LABS: BASOPHILS % (AUTO) 0.6 % (0.0-2.0); EOSINOPHILS % (AUTO) 7.4 % (1.0-6.0); HEMATOCRIT 22.5 % (41-53); HEMOGLOBIN 7.3 g/dL (13.5-17.5); LYMPHOCYTES # (AUTO) 0.5 K/uL (1.0-4.8); LYMPHOCYTES % (AUTO) 28.8 % (22.0-44.0); MEAN CORPUSCULAR HEMOGLOBIN 27.1 pg (26.0-34.0); MEAN CORPUSCULAR HGB CONC 32.4 G/dL (31.0-37.0); MEAN CORPUSCULAR VOLUME 84 fL (80-100); MONOCYTES # (AUTO) 0.2 K/uL (0.1-1.0); MONOCYTES % (AUTO) 13.2 % (2.0-9.0); NEUTROPHILS # (AUTO) 0.9 K/uL (1.8-7.7); PLATELET COUNT (AUTO) 79 K/uL (150-450); RED BLOOD CELL COUNT(AUTO) 2.69 MIL/uL (4.50-5.90); RED CELL DISTRIBUTION WIDTH 20.1 % (11.5-14.5)
[2020-03-26 08:33] LABS: ALANINE AMINOTRANSFERASE 58 U/L (12-78); ALBUMIN 2.3 g/dL (3.4-5.0); ALKALINE PHOSPHATASE 93 U/L (46-116); ANION GAP 5 mmol/L (8-16); ASPARTATE AMINOTRANSFERASE 36 U/L (15-37); BILIRUBIN,TOTAL 0.8 mg/dL (0.1-1.0); CALCIUM, TOTAL 7.5 mg/dL (8.8-10.5); CARBON DIOXIDE 25 mmol/L (22-29); CHLORIDE 107 mmol/L (98-107); CREATININE 0.92 mg/dL (0.60-1.30); GLOMERULAR FILTR. RATE CALC > 60 mL/min (>60); GLUCOSE,RANDOM 103 mg/dL (70-110); POTASSIUM 4.4 mmol/L (3.5-5.1); SODIUM SERUM 137 mmol/L (136-145); TOTAL PROTEIN, SERUM 4.8 g/dL (6.4-8.2); UREA NITROGEN, BLOOD 22 mg/dL (7-18)
[2020-03-26] MEDS: EPOETIN ALFA 10,000 UNITS/ML VIAL SQ SCH (08:37)
[2020-03-26 10:10] VITALS: BP 114/62
[2020-03-26 12:29] LABS: GLUCOMETER DEV NAME(LOC) 6N.1; GLUCOSE,POINT OF CARE 100 MG/DL (70-110)
[2020-03-26 18:16] LABS: GLUCOMETER DEV NAME(LOC) 6N.1; GLUCOSE,POINT OF CARE 134 MG/DL (70-110)
[2020-03-26 19:27] VITALS: BP 139/59
[2020-03-26] MEDS: TAMSULOSIN HCL 0.4 MG CAPSULE PO SCH (21:12)
[2020-03-26] MEDS: SENNA 187 MG TABLET PO SCH (21:12)
[2020-03-26] MEDS: ATORVASTATIN CALCIUM 40 MG TABLET PO SCH (21:12)
[2020-03-26] MEDS: MELATONIN 3 MG TABLET PO SCH (21:12)
[2020-03-26] MEDS: INSULIN GLARGINE,HUM.REC.ANLOG 100 UNITS/ML SQ SCH (21:28)
[2020-03-26 23:52] VITALS: BP 124/68
[2020-03-27 06:22] LABS: GLUCOMETER DEV NAME(LOC) 6N.1; GLUCOSE,POINT OF CARE 96 MG/DL (70-110)
[2020-03-27] MEDS: INSULIN LISPRO 100 UNITS/ML SQ SCH ×3 (07:00→17:44)
[2020-03-27 07:30] VITALS: BP 139/64
[2020-03-27] MEDS: MAGNESIUM OXIDE 400 MG TABLET PO SCH ×2 (09:10→21:08)
[2020-03-27] MEDS: CARVEDILOL 3.125 MG TABLET PO SCH ×2 (09:10→21:08)
[2020-03-27] MEDS: PANTOPRAZOLE SODIUM 40 MG DR TABLET PO SCH ×2 (09:10→21:08)
[2020-03-27] MEDS: DOCUSATE SODIUM 100 MG CAPSULE PO SCH ×2 (09:10→21:08)
[2020-03-27] MEDS: POTASSIUM CHLORIDE 20 MEQ ER TABLET PO SCH (09:11)
[2020-03-27] MEDS: SODIUM CHLORIDE 1 GM TABLET PO SCH ×2 (09:11→21:08)
[2020-03-27] MEDS: LevETIRAcetam 250 MG TABLET PO SCH ×2 (09:11→21:08)
[2020-03-27 10:00] VITALS: BP 125/65
[2020-03-27 15:15] LABS: GLUCOMETER DEV NAME(LOC) 6N.1; GLUCOSE,POINT OF CARE 114 MG/DL (70-110)
[2020-03-27 15:20] VITALS: BP 147/67
[2020-03-27 15:44] LABS: GLUCOMETER DEV NAME(LOC) 6N.1; GLUCOSE,POINT OF CARE 186 MG/DL (70-110)
[2020-03-27] MEDS: INSULIN LISPRO 100 UNITS/ML SQ PRN (17:45)
[2020-03-27] MEDS: MELATONIN 3 MG TABLET PO SCH (21:08)
[2020-03-27] MEDS: SENNA 187 MG TABLET PO SCH (21:08)
[2020-03-27] MEDS: TAMSULOSIN HCL 0.4 MG CAPSULE PO SCH (21:08)
[2020-03-27] MEDS: ATORVASTATIN CALCIUM 40 MG TABLET PO SCH (21:08)
[2020-03-27] MEDS: INSULIN GLARGINE,HUM.REC.ANLOG 100 UNITS/ML SQ SCH (21:19)
[2020-03-27 21:49] LABS: GLUCOMETER DEV NAME(LOC) 6N.1; GLUCOSE,POINT OF CARE 95 MG/DL (70-110)
[2020-03-27 23:00] VITALS: BP 118/56
[2020-03-28] MEDS ORDERED: TAMS-13 PO (00:51)
[2020-03-28] MEDS ORDERED: MELA3TAB82 PO (00:53)
[2020-03-28] MEDS ORDERED: MAGOX PO (00:56)
[2020-03-28] MEDS ORDERED: POTA20TA83 PO (00:56)
[2020-03-28 06:06] LABS: GLUCOMETER DEV NAME(LOC) 6N.1; GLUCOSE,POINT OF CARE 109 MG/DL (70-110)
[2020-03-28] MEDS: INSULIN LISPRO 100 UNITS/ML SQ SCH (07:00)
[2020-03-28] MEDS: DOCUSATE SODIUM 100 MG CAPSULE PO SCH ×2 (07:46→19:58)
[2020-03-28] MEDS: MAGNESIUM OXIDE 400 MG TABLET PO SCH ×2 (07:46→19:58)
[2020-03-28] MEDS: POTASSIUM CHLORIDE 20 MEQ ER TABLET PO SCH (07:46)
[2020-03-28] MEDS: EPOETIN ALFA 10,000 UNITS/ML VIAL SQ SCH (07:47)
[2020-03-28] MEDS: PANTOPRAZOLE SODIUM 40 MG DR TABLET PO SCH ×2 (07:47→19:58)
[2020-03-28] MEDS: LevETIRAcetam 250 MG TABLET PO SCH ×2 (07:47→19:57)
[2020-03-28] MEDS: SODIUM CHLORIDE 1 GM TABLET PO SCH ×2 (07:47→19:57)
[2020-03-28] MEDS: CARVEDILOL 3.125 MG TABLET PO SCH ×2 (07:47→19:59)
[2020-03-28 08:00] VITALS: BP 146/71
[2020-03-28 09:00] VITALS: BP 130/63
[2020-03-28 15:40] LABS: GLUCOMETER DEV NAME(LOC) 6N.1; GLUCOSE,POINT OF CARE 90 MG/DL (70-110)
[2020-03-28 17:30] VITALS: BP 165/83
[2020-03-28] MEDS: INSULIN LISPRO 100 UNITS/ML SQ PRN (18:14)
[2020-03-28 18:16] LABS: GLUCOMETER DEV NAME(LOC) 6N.1; GLUCOSE,POINT OF CARE 191 MG/DL (70-110)
[2020-03-28 19:47] VITALS: BP 160/86
[2020-03-28] MEDS: ATORVASTATIN CALCIUM 40 MG TABLET PO SCH (19:58)
[2020-03-28] MEDS: MELATONIN 3 MG TABLET PO SCH (19:58)
[2020-03-28] MEDS: SENNA 187 MG TABLET PO SCH (19:58)
[2020-03-28] MEDS: TAMSULOSIN HCL 0.4 MG CAPSULE PO SCH (19:59)
[2020-03-28] MEDS: INSULIN GLARGINE,HUM.REC.ANLOG 100 UNITS/ML SQ SCH (21:43)
[2020-03-28 21:47] VITALS: BP 151/70
[2020-03-28 23:51] LABS: GLUCOMETER DEV NAME(LOC) 6N.1; GLUCOSE,POINT OF CARE 132 MG/DL (70-110)
[2020-03-29] VITALS: BP 139/59
[2020-03-29 05:38] LABS: GLUCOMETER DEV NAME(LOC) 6N.1; GLUCOSE,POINT OF CARE 90 MG/DL (70-110)
[2020-03-29 07:20] VITALS: BP 132/64
[2020-03-29] MEDS: CARVEDILOL 3.125 MG TABLET PO SCH ×2 (07:57→21:54)
[2020-03-29] MEDS: MAGNESIUM OXIDE 400 MG TABLET PO SCH ×2 (07:57→21:54)
[2020-03-29] MEDS: DOCUSATE SODIUM 100 MG CAPSULE PO SCH ×2 (07:57→21:54)
[2020-03-29] MEDS: POTASSIUM CHLORIDE 20 MEQ ER TABLET PO SCH (07:57)
[2020-03-29] MEDS: SODIUM CHLORIDE 1 GM TABLET PO SCH ×2 (07:58→21:53)
[2020-03-29] MEDS: LevETIRAcetam 250 MG TABLET PO SCH ×2 (07:58→21:53)
[2020-03-29] MEDS: PANTOPRAZOLE SODIUM 40 MG DR TABLET PO SCH ×2 (07:59→21:54)
[2020-03-29 13:38] LABS: GLUCOMETER DEV NAME(LOC) 6N.1; GLUCOSE,POINT OF CARE 78 MG/DL (70-110)
[2020-03-29 15:03] VITALS: BP 143/75
[2020-03-29 16:34] LABS: GLUCOMETER DEV NAME(LOC) 6N.1; GLUCOSE,POINT OF CARE 126 MG/DL (70-110)
[2020-03-29 21:52] VITALS: BP 154/66
[2020-03-29] MEDS: MELATONIN 3 MG TABLET PO SCH (21:53)
[2020-03-29] MEDS: SENNA 187 MG TABLET PO SCH (21:54)
[2020-03-29] MEDS: ATORVASTATIN CALCIUM 40 MG TABLET PO SCH (21:54)
[2020-03-29] MEDS: TAMSULOSIN HCL 0.4 MG CAPSULE PO SCH (21:54)
[2020-03-29] MEDS: INSULIN GLARGINE,HUM.REC.ANLOG 100 UNITS/ML SQ SCH (22:28)
[2020-03-30 02:45] VITALS: BP 159/68
[2020-03-30 07:15] VITALS: BP 118/55
[2020-03-30] MEDS: PANTOPRAZOLE SODIUM 40 MG DR TABLET PO SCH ×2 (08:23→20:51)
[2020-03-30] MEDS: POTASSIUM CHLORIDE 20 MEQ ER TABLET PO SCH (08:23)
[2020-03-30] MEDS: DOCUSATE SODIUM 100 MG CAPSULE PO SCH ×2 (08:24→20:51)
[2020-03-30] MEDS: LevETIRAcetam 250 MG TABLET PO SCH ×2 (08:24→20:51)
[2020-03-30] MEDS: CARVEDILOL 3.125 MG TABLET PO SCH ×2 (08:24→20:51)
[2020-03-30] MEDS: SODIUM CHLORIDE 1 GM TABLET PO SCH ×2 (08:24→21:00)
[2020-03-30] MEDS: MAGNESIUM OXIDE 400 MG TABLET PO SCH ×2 (08:24→20:51)
[2020-03-30 08:39] LABS: BASOPHILS % (AUTO) 0.3 % (0.0-2.0); EOSINOPHILS % (AUTO) 0.7 % (1.0-6.0); HEMATOCRIT 23.3 % (41-53); HEMOGLOBIN 7.6 g/dL (13.5-17.5); LYMPHOCYTES # (AUTO) 0.7 K/uL (1.0-4.8); LYMPHOCYTES % (AUTO) 24.1 % (22.0-44.0); MEAN CORPUSCULAR HEMOGLOBIN 26.9 pg (26.0-34.0); MEAN CORPUSCULAR HGB CONC 32.6 G/dL (31.0-37.0); MEAN CORPUSCULAR VOLUME 82 fL (80-100); MONOCYTES # (AUTO) 0.5 K/uL (0.1-1.0); MONOCYTES % (AUTO) 17.3 % (2.0-9.0); NEUTROPHILS # (AUTO) 1.7 K/uL (1.8-7.7); NEUTROPHILS % (AUTO) 57.6 % (40.0-70.0); PLATELET COUNT (AUTO) 113 K/uL (150-450); RED BLOOD CELL COUNT(AUTO) 2.83 MIL/uL (4.50-5.90); RED CELL DISTRIBUTION WIDTH 19.4 % (11.5-14.5)
[2020-03-30] MEDS: EPOETIN ALFA 10,000 UNITS/ML VIAL SQ SCH (09:55)
[2020-03-30 10:26] LABS: GLUCOMETER DEV NAME(LOC) 6N.1; GLUCOSE,POINT OF CARE 68 MG/DL (70-110)
[2020-03-30 10:26] LABS: GLUCOMETER DEV NAME(LOC) 6N.1; GLUCOSE,POINT OF CARE 109 MG/DL (70-110)
[2020-03-30 11:13] LABS: GLUCOMETER DEV NAME(LOC) 2WR.1C; GLUCOSE,POINT OF CARE 86 MG/DL (70-110)
[2020-03-30 14:40] LABS: GLUCOMETER DEV NAME(LOC) 2WR.2; GLUCOSE,POINT OF CARE 90 MG/DL (70-110)
[2020-03-30 15:27] VITALS: BP 132/52
[2020-03-30 17:09] LABS: GLUCOMETER DEV NAME(LOC) 2WR.2; GLUCOSE,POINT OF CARE 154 MG/DL (70-110)
[2020-03-30] MEDS: INSULIN LISPRO 100 UNITS/ML SQ PRN ×2 (17:10→20:52)
[2020-03-30 20:47] VITALS: BP 143/62
[2020-03-30] MEDS: SENNA 187 MG TABLET PO SCH (20:51)
[2020-03-30] MEDS: TAMSULOSIN HCL 0.4 MG CAPSULE PO SCH (20:51)
[2020-03-30] MEDS: MELATONIN 3 MG TABLET PO SCH (20:51)
[2020-03-30] MEDS: ATORVASTATIN CALCIUM 40 MG TABLET PO SCH (20:51)
[2020-03-30] MEDS: INSULIN GLARGINE,HUM.REC.ANLOG 100 UNITS/ML SQ SCH (20:53)
[2020-03-30 21:14] LABS: GLUCOMETER DEV NAME(LOC) 2WR.2; GLUCOSE,POINT OF CARE 211 MG/DL (70-110)
[2020-03-31 01:00] VITALS: BP 133/72
[2020-03-31 06:43] LABS: GLUCOMETER DEV NAME(LOC) 2WR.2; GLUCOSE,POINT OF CARE 67 MG/DL (70-110)
[2020-03-31 07:00] VITALS: BP 115/48
[2020-03-31 07:36] LABS: GLUCOMETER DEV NAME(LOC) 2WR.2; GLUCOSE,POINT OF CARE 93 MG/DL (70-110)
[2020-03-31] MEDS: LevETIRAcetam 250 MG TABLET PO SCH ×2 (08:07→20:37)
[2020-03-31] MEDS: PANTOPRAZOLE SODIUM 40 MG DR TABLET PO SCH ×2 (08:08→20:38)
[2020-03-31] MEDS: MAGNESIUM OXIDE 400 MG TABLET PO SCH ×2 (08:08→20:38)
[2020-03-31] MEDS: CARVEDILOL 3.125 MG TABLET PO SCH ×2 (08:08→20:38)
[2020-03-31] MEDS: POTASSIUM CHLORIDE 20 MEQ ER TABLET PO SCH (08:08)
[2020-03-31] MEDS: SODIUM CHLORIDE 1 GM TABLET PO SCH ×2 (08:08→20:38)
[2020-03-31] MEDS: DOCUSATE SODIUM 100 MG CAPSULE PO SCH ×2 (08:08→20:38)
[2020-03-31 14:25] LABS: GLUCOMETER DEV NAME(LOC) 2WR.2; GLUCOSE,POINT OF CARE 77 MG/DL (70-110)
[2020-03-31 15:30] VITALS: BP 109/47
[2020-03-31 18:32] LABS: GLUCOMETER DEV NAME(LOC) 2WR.2; GLUCOSE,POINT OF CARE 118 MG/DL (70-110)
[2020-03-31] MEDS: TAMSULOSIN HCL 0.4 MG CAPSULE PO SCH (20:37)
[2020-03-31] MEDS: MELATONIN 3 MG TABLET PO SCH (20:38)
[2020-03-31] MEDS: ATORVASTATIN CALCIUM 40 MG TABLET PO SCH (20:38)
[2020-03-31] MEDS: SENNA 187 MG TABLET PO SCH (20:38)
[2020-03-31] MEDS: INSULIN LISPRO 100 UNITS/ML SQ PRN (20:47)
[2020-03-31] MEDS: INSULIN GLARGINE,HUM.REC.ANLOG 100 UNITS/ML SQ SCH (20:48)
[2020-03-31 20:57] LABS: GLUCOMETER DEV NAME(LOC) 2WR.2; GLUCOSE,POINT OF CARE 162 MG/DL (70-110)
[2020-04-01 00:35] VITALS: BP 138/62
[2020-04-01 06:12] LABS: GLUCOMETER DEV NAME(LOC) 2WR.1C; GLUCOSE,POINT OF CARE 103 MG/DL (70-110)
[2020-04-01 07:12] VITALS: BP 135/64
[2020-04-01] MEDS: LevETIRAcetam 250 MG TABLET PO SCH ×2 (08:25→23:15)
[2020-04-01] MEDS: DOCUSATE SODIUM 100 MG CAPSULE PO SCH ×2 (08:25→23:12)
[2020-04-01] MEDS: POTASSIUM CHLORIDE 20 MEQ ER TABLET PO SCH (08:25)
[2020-04-01] MEDS: CARVEDILOL 3.125 MG TABLET PO SCH ×2 (08:25→23:14)
[2020-04-01] MEDS: SODIUM CHLORIDE 1 GM TABLET PO SCH ×2 (08:25→23:14)
[2020-04-01] MEDS: MAGNESIUM OXIDE 400 MG TABLET PO SCH ×2 (08:25→23:14)
[2020-04-01] MEDS: PANTOPRAZOLE SODIUM 40 MG DR TABLET PO SCH ×2 (08:25→23:14)
[2020-04-01] MEDS: EPOETIN ALFA 10,000 UNITS/ML VIAL SQ SCH (08:30)
[2020-04-01 11:37] LABS: GLUCOMETER DEV NAME(LOC) 2WR.2; GLUCOSE,POINT OF CARE 123 MG/DL (70-110)
[2020-04-01 15:15] VITALS: BP 145/57
[2020-04-01 17:31] LABS: GLUCOMETER DEV NAME(LOC) 2WR.2; GLUCOSE,POINT OF CARE 152 MG/DL (70-110)
[2020-04-01] MEDS: INSULIN LISPRO 100 UNITS/ML SQ PRN ×2 (17:49→23:16)
[2020-04-01 21:00] LABS: GLUCOMETER DEV NAME(LOC) 2WR.2; GLUCOSE,POINT OF CARE 215 MG/DL (70-110)
[2020-04-01] MEDS: SENNA 187 MG TABLET PO SCH (23:13)
[2020-04-01] MEDS: TAMSULOSIN HCL 0.4 MG CAPSULE PO SCH (23:13)
[2020-04-01] MEDS: MELATONIN 3 MG TABLET PO SCH (23:14)
[2020-04-01] MEDS: ATORVASTATIN CALCIUM 40 MG TABLET PO SCH (23:14)
[2020-04-01] MEDS: INSULIN GLARGINE,HUM.REC.ANLOG 100 UNITS/ML SQ SCH (23:17)
[2020-04-02 05:56] LABS: GLUCOMETER DEV NAME(LOC) 2WR.1C; GLUCOSE,POINT OF CARE 78 MG/DL (70-110)
[2020-04-02 06:10] VITALS: BP 139/65
[2020-04-02 08:19] LABS: EOSINOPHILS % (AUTO) 2.4 % (1.0-6.0); HEMOGLOBIN 7.8 g/dL (13.5-17.5); LYMPHOCYTES # (AUTO) 0.6 K/uL (1.0-4.8); LYMPHOCYTES % (AUTO) 33.8 % (22.0-44.0); MEAN CORPUSCULAR HEMOGLOBIN 26.5 pg (26.0-34.0); MEAN CORPUSCULAR HGB CONC 32.6 G/dL (31.0-37.0); MEAN CORPUSCULAR VOLUME 82 fL (80-100); MONOCYTES # (AUTO) 0.4 K/uL (0.1-1.0); NEUTROPHILS # (AUTO) 0.8 K/uL (1.8-7.7); NEUTROPHILS % (AUTO) 42.8 % (40.0-70.0); PLATELET COUNT (AUTO) 125 K/uL (150-450); RED BLOOD CELL COUNT(AUTO) 2.94 MIL/uL (4.50-5.90); RED CELL DISTRIBUTION WIDTH 19.1 % (11.5-14.5)
[2020-04-02 08:38] LABS: ALANINE AMINOTRANSFERASE 47 U/L (12-78); ALBUMIN 2.1 g/dL (3.4-5.0); ALKALINE PHOSPHATASE 75 U/L (46-116); ANION GAP 8 mmol/L (8-16); ASPARTATE AMINOTRANSFERASE 37 U/L (15-37); BILIRUBIN,TOTAL 0.8 mg/dL (0.1-1.0); CALCIUM, TOTAL 7.7 mg/dL (8.8-10.5); CARBON DIOXIDE 23 mmol/L (22-29); CHLORIDE 106 mmol/L (98-107); CREATININE 0.91 mg/dL (0.60-1.30); GLOMERULAR FILTR. RATE CALC > 60 mL/min (>60); GLUCOSE,RANDOM 114 mg/dL (70-110); POTASSIUM 4.3 mmol/L (3.5-5.1); SODIUM SERUM 137 mmol/L (136-145); TOTAL PROTEIN, SERUM 5.1 g/dL (6.4-8.2); UREA NITROGEN, BLOOD 22 mg/dL (7-18)
[2020-04-02] MEDS: MAGNESIUM OXIDE 400 MG TABLET PO SCH (08:38)
[2020-04-02] MEDS: SODIUM CHLORIDE 1 GM TABLET PO SCH (08:38)
[2020-04-02] MEDS: PANTOPRAZOLE SODIUM 40 MG DR TABLET PO SCH ×2 (08:38→20:58)
[2020-04-02] MEDS: POTASSIUM CHLORIDE 20 MEQ ER TABLET PO SCH (08:39)
[2020-04-02] MEDS: DOCUSATE SODIUM 100 MG CAPSULE PO SCH ×2 (08:39→20:58)
[2020-04-02] MEDS: CARVEDILOL 3.125 MG TABLET PO SCH ×2 (08:39→20:59)
[2020-04-02] MEDS: LevETIRAcetam 250 MG TABLET PO SCH ×2 (08:42→21:00)
[2020-04-02 09:39] VITALS: BP 126/53
[2020-04-02 14:43] LABS: GLUCOMETER DEV NAME(LOC) 2WR.1C; GLUCOSE,POINT OF CARE 131 MG/DL (70-110)
[2020-04-02 15:10] VITALS: BP 142/68
[2020-04-02 15:51] LABS: GLUCOMETER DEV NAME(LOC) 2WR.2; GLUCOSE,POINT OF CARE 173 MG/DL (70-110)
[2020-04-02] MEDS: INSULIN LISPRO 100 UNITS/ML SQ PRN ×2 (17:43→21:07)
[2020-04-02 17:58] LABS: GLUCOMETER DEV NAME(LOC) 2WR.2; GLUCOSE,POINT OF CARE 243 MG/DL (70-110)
[2020-04-02] MEDS: TAMSULOSIN HCL 0.4 MG CAPSULE PO SCH (20:59)
[2020-04-02] MEDS: ATORVASTATIN CALCIUM 40 MG TABLET PO SCH (20:59)
[2020-04-02] MEDS: SENNA 187 MG TABLET PO SCH (21:00)
[2020-04-02] MEDS: MELATONIN 3 MG TABLET PO SCH (21:00)
[2020-04-02] MEDS: INSULIN GLARGINE,HUM.REC.ANLOG 100 UNITS/ML SQ SCH (21:07)
[2020-04-02 22:21] LABS: GLUCOMETER DEV NAME(LOC) 2WR.2; GLUCOSE,POINT OF CARE 155 MG/DL (70-110)
[2020-04-03 00:05] VITALS: BP 140/60
[2020-04-03 05:32] LABS: GLUCOMETER DEV NAME(LOC) 2WR.2; GLUCOSE,POINT OF CARE 141 MG/DL (70-110)
[2020-04-03 07:11] VITALS: BP 139/74
[2020-04-03] MEDS: INSULIN LISPRO 100 UNITS/ML SQ PRN ×2 (08:04→17:55)
[2020-04-03] MEDS: CARVEDILOL 3.125 MG TABLET PO SCH ×2 (08:16→20:48)
[2020-04-03] MEDS: DOCUSATE SODIUM 100 MG CAPSULE PO SCH ×2 (08:16→20:48)
[2020-04-03] MEDS: LevETIRAcetam 250 MG TABLET PO SCH ×2 (08:16→20:48)
[2020-04-03] MEDS: POTASSIUM CHLORIDE 20 MEQ ER TABLET PO SCH (08:16)
[2020-04-03] MEDS: PANTOPRAZOLE SODIUM 40 MG DR TABLET PO SCH ×2 (08:16→20:48)
[2020-04-03] MEDS: EPOETIN ALFA 10,000 UNITS/ML VIAL SQ SCH (08:18)
[2020-04-03 12:37] LABS: GLUCOMETER DEV NAME(LOC) 2WR.2; GLUCOSE,POINT OF CARE 93 MG/DL (70-110)
[2020-04-03 16:07] VITALS: BP 149/71
[2020-04-03 18:19] LABS: GLUCOMETER DEV NAME(LOC) 2WR.1C; GLUCOSE,POINT OF CARE 181 MG/DL (70-110)
[2020-04-03] MEDS: SENNA 187 MG TABLET PO SCH (20:48)
[2020-04-03] MEDS: ATORVASTATIN CALCIUM 40 MG TABLET PO SCH (20:48)
[2020-04-03] MEDS: TAMSULOSIN HCL 0.4 MG CAPSULE PO SCH (20:48)
[2020-04-03] MEDS: MELATONIN 3 MG TABLET PO SCH (20:48)
[2020-04-03] MEDS: INSULIN GLARGINE,HUM.REC.ANLOG 100 UNITS/ML SQ SCH (20:57)
[2020-04-03 21:08] LABS: GLUCOMETER DEV NAME(LOC) 2WR.2; GLUCOSE,POINT OF CARE 119 MG/DL (70-110)
[2020-04-04 03:08] VITALS: BP 149/67
[2020-04-04 05:42] LABS: GLUCOMETER DEV NAME(LOC) 2WR.2; GLUCOSE,POINT OF CARE 86 MG/DL (70-110)
[2020-04-04 07:20] VITALS: BP 149/66
[2020-04-04] MEDS: PANTOPRAZOLE SODIUM 40 MG DR TABLET PO SCH ×2 (08:19→20:52)
[2020-04-04] MEDS: DOCUSATE SODIUM 100 MG CAPSULE PO SCH ×2 (08:19→20:52)
[2020-04-04] MEDS: POTASSIUM CHLORIDE 20 MEQ ER TABLET PO SCH (08:19)
[2020-04-04] MEDS: LevETIRAcetam 250 MG TABLET PO SCH ×2 (08:19→20:51)
[2020-04-04] MEDS: CARVEDILOL 3.125 MG TABLET PO SCH ×2 (08:20→20:52)
[2020-04-04 09:07] LABS: BASOPHILS % (AUTO) 0.7 % (0.0-2.0); EOSINOPHILS % (AUTO) 0.9 % (1.0-6.0); HEMATOCRIT 25.7 % (41-53); HEMOGLOBIN 8.5 g/dL (13.5-17.5); LYMPHOCYTES % (AUTO) 28.6 % (22.0-44.0); MEAN CORPUSCULAR HEMOGLOBIN 26.8 pg (26.0-34.0); MEAN CORPUSCULAR VOLUME 81 fL (80-100); MONOCYTES # (AUTO) 0.5 K/uL (0.1-1.0); MONOCYTES % (AUTO) 14.4 % (2.0-9.0); NEUTROPHILS # (AUTO) 1.9 K/uL (1.8-7.7); NEUTROPHILS % (AUTO) 55.4 % (40.0-70.0); PLATELET COUNT (AUTO) 135 K/uL (150-450); RED BLOOD CELL COUNT(AUTO) 3.16 MIL/uL (4.50-5.90); RED CELL DISTRIBUTION WIDTH 18.9 % (11.5-14.5)
[2020-04-04 09:31] LABS: ALANINE AMINOTRANSFERASE 56 U/L (12-78); ALBUMIN 2.4 g/dL (3.4-5.0); ALKALINE PHOSPHATASE 83 U/L (46-116); ANION GAP 8 mmol/L (8-16); ASPARTATE AMINOTRANSFERASE 41 U/L (15-37); BILIRUBIN,TOTAL 0.8 mg/dL (0.1-1.0); CALCIUM, TOTAL 7.8 mg/dL (8.8-10.5); CARBON DIOXIDE 27 mmol/L (22-29); CHLORIDE 105 mmol/L (98-107); CREATININE 1.18 mg/dL (0.60-1.30); GLOMERULAR FILTR. RATE CALC > 60 mL/min (>60); GLUCOSE,RANDOM 103 mg/dL (70-110); POTASSIUM 4.6 mmol/L (3.5-5.1); SODIUM SERUM 140 mmol/L (136-145); TOTAL PROTEIN, SERUM 5.4 g/dL (6.4-8.2); UREA NITROGEN, BLOOD 18 mg/dL (7-18)
[2020-04-04] MEDS: INSULIN LISPRO 100 UNITS/ML SQ PRN ×3 (12:37→21:00)
[2020-04-04 12:52] LABS: GLUCOMETER DEV NAME(LOC) 2WR.1C; GLUCOSE,POINT OF CARE 164 MG/DL (70-110)
[2020-04-04 15:40] VITALS: BP 112/61
[2020-04-04 18:41] LABS: GLUCOMETER DEV NAME(LOC) 2WR.1C; GLUCOSE,POINT OF CARE 142 MG/DL (70-110)
[2020-04-04] MEDS: SENNA 187 MG TABLET PO SCH (20:51)
[2020-04-04] MEDS: TAMSULOSIN HCL 0.4 MG CAPSULE PO SCH (20:51)
[2020-04-04] MEDS: ATORVASTATIN CALCIUM 40 MG TABLET PO SCH (20:52)
[2020-04-04] MEDS: MELATONIN 3 MG TABLET PO SCH (20:52)
[2020-04-04] MEDS: INSULIN GLARGINE,HUM.REC.ANLOG 100 UNITS/ML SQ SCH (21:00)
[2020-04-04 22:01] LABS: GLUCOMETER DEV NAME(LOC) 2WR.1C; GLUCOSE,POINT OF CARE 175 MG/DL (70-110)
[2020-04-05 02:45] VITALS: BP 134/64
[2020-04-05 06:00] LABS: GLUCOMETER DEV NAME(LOC) 2WR.2; GLUCOSE,POINT OF CARE 225 MG/DL (70-110)
[2020-04-05 07:40] VITALS: BP 110/56
[2020-04-05] MEDS: INSULIN LISPRO 100 UNITS/ML SQ PRN (07:51)
[2020-04-05] MEDS: DOCUSATE SODIUM 100 MG CAPSULE PO SCH ×2 (08:25→21:00)
[2020-04-05] MEDS: PANTOPRAZOLE SODIUM 40 MG DR TABLET PO SCH ×2 (08:25→21:02)
[2020-04-05] MEDS: LevETIRAcetam 250 MG TABLET PO SCH ×2 (08:25→21:00)
[2020-04-05] MEDS: POTASSIUM CHLORIDE 20 MEQ ER TABLET PO SCH (08:25)
[2020-04-05] MEDS: CARVEDILOL 3.125 MG TABLET PO SCH ×2 (08:25→21:00)
[2020-04-05] MEDS: EPOETIN ALFA 10,000 UNITS/ML VIAL SQ SCH (08:27)
[2020-04-05 11:53] LABS: GLUCOMETER DEV NAME(LOC) 2WR.2; GLUCOSE,POINT OF CARE 119 MG/DL (70-110)
[2020-04-05 15:00] VITALS: BP 168/77
[2020-04-05 17:15] VITALS: BP 162/57
[2020-04-05 17:44] LABS: GLUCOMETER DEV NAME(LOC) 2WR.2; GLUCOSE,POINT OF CARE 110 MG/DL (70-110)
[2020-04-05 20:57] VITALS: BP 162/79
[2020-04-05] MEDS: MELATONIN 3 MG TABLET PO SCH (21:00)
[2020-04-05] MEDS: SENNA 187 MG TABLET PO SCH (21:00)
[2020-04-05] MEDS: ATORVASTATIN CALCIUM 40 MG TABLET PO SCH (21:00)
[2020-04-05] MEDS: TAMSULOSIN HCL 0.4 MG CAPSULE PO SCH (21:00)
[2020-04-05] MEDS: INSULIN GLARGINE,HUM.REC.ANLOG 100 UNITS/ML SQ SCH (21:30)
[2020-04-05 21:42] LABS: GLUCOMETER DEV NAME(LOC) 2WR.2; GLUCOSE,POINT OF CARE 133 MG/DL (70-110)
[2020-04-05 22:29] VITALS: BP 153/71
[2020-04-06 00:48] VITALS: BP 154/77
[2020-04-06 05:36] LABS: GLUCOMETER DEV NAME(LOC) 2WR.1C; GLUCOSE,POINT OF CARE 81 MG/DL (70-110)
[2020-04-06 08:30] VITALS: BP 140/69
[2020-04-06] MEDS: DOCUSATE SODIUM 100 MG CAPSULE PO SCH ×2 (08:31→20:16)
[2020-04-06] MEDS: LevETIRAcetam 250 MG TABLET PO SCH ×2 (08:31→20:16)
[2020-04-06] MEDS: POTASSIUM CHLORIDE 20 MEQ ER TABLET PO SCH (08:31)
[2020-04-06] MEDS: CARVEDILOL 3.125 MG TABLET PO SCH ×2 (08:31→20:16)
[2020-04-06] MEDS: PANTOPRAZOLE SODIUM 40 MG DR TABLET PO SCH ×2 (08:31→20:16)
[2020-04-06 11:44] LABS: GLUCOMETER DEV NAME(LOC) 2WR.2; GLUCOSE,POINT OF CARE 101 MG/DL (70-110)
[2020-04-06 13:17] LABS: CALCIUM, TOTAL 8.1 mg/dL (8.8-10.5); CREATININE 1.24 mg/dL (0.60-1.30); POTASSIUM 4.6 mmol/L (3.5-5.1)
[2020-04-06 15:20] VITALS: BP 147/55
[2020-04-06] MEDS: INSULIN LISPRO 100 UNITS/ML SQ PRN ×2 (17:50→20:22)
[2020-04-06 19:19] LABS: GLUCOMETER DEV NAME(LOC) 2WR.1C; GLUCOSE,POINT OF CARE 163 MG/DL (70-110)
[2020-04-06] MEDS: TAMSULOSIN HCL 0.4 MG CAPSULE PO SCH (20:16)
[2020-04-06] MEDS: MELATONIN 3 MG TABLET PO SCH (20:16)
[2020-04-06] MEDS: ATORVASTATIN CALCIUM 40 MG TABLET PO SCH (20:16)
[2020-04-06] MEDS: SENNA 187 MG TABLET PO SCH (20:16)
[2020-04-06] MEDS: INSULIN GLARGINE,HUM.REC.ANLOG 100 UNITS/ML SQ SCH (20:20)
[2020-04-06 20:29] VITALS: BP 135/56
[2020-04-06 21:30] LABS: GLUCOMETER DEV NAME(LOC) 2WR.2; GLUCOSE,POINT OF CARE 221 MG/DL (70-110)
[2020-04-07] VITALS: BP 126/68
[2020-04-07 05:54] LABS: GLUCOMETER DEV NAME(LOC) 2WR.1C; GLUCOSE,POINT OF CARE 118 MG/DL (70-110)
[2020-04-07 08:02] VITALS: BP 160/75
[2020-04-07] MEDS: EPOETIN ALFA 10,000 UNITS/ML VIAL SQ SCH (08:11)
[2020-04-07] MEDS: DOCUSATE SODIUM 100 MG CAPSULE PO SCH (08:11)
[2020-04-07] MEDS: CARVEDILOL 3.125 MG TABLET PO SCH (08:11)
[2020-04-07] MEDS: PANTOPRAZOLE SODIUM 40 MG DR TABLET PO SCH (08:11)
[2020-04-07] MEDS: POTASSIUM CHLORIDE 20 MEQ ER TABLET PO SCH (08:11)
[2020-04-07] MEDS: LevETIRAcetam 250 MG TABLET PO SCH (08:11)
[2020-04-07 15:37] LABS: GLUCOMETER DEV NAME(LOC) 2WR.1C; GLUCOSE,POINT OF CARE 88 MG/DL (70-110)
== END 2020-04-07 15:40 | disposition home health service (06) | DRG 41 ==
LOC: 2WR 17:20
PROVIDERS: ADMIT Physical Medicine & Rehabilitation; ATTEND Physical Medicine & Rehabilitation
PROC: 302 Administration, Circulatory, Transfusion (ICD-10-PCS; principal; 2020-03-16)
DX: C79.31 Secondary malignant neoplasm of brain (principal); D61.818 Other pancytopenia; E11.22 Type 2 diabetes mellitus with diabetic chronic kidney disease; C79.11 Secondary malignant neoplasm of bladder; E87.0 Hyperosmolality and hypernatremia; E46 Unspecified protein-calorie malnutrition; E83.42 Hypomagnesemia; I13.0 Hypertensive heart and chronic kidney disease with heart failure and stage 1 through stage 4 chronic kidney disease, or unspecified chronic kidney disease; I42.9 Cardiomyopathy, unspecified; G40.909 Epilepsy, unspecified, not intractable, without status epilepticus; I48.0 Paroxysmal atrial fibrillation; E87.1 Hypo-osmolality and hyponatremia; E78.5 Hyperlipidemia, unspecified; E87.6 Hypokalemia; F17.210 Nicotine dependence, cigarettes, uncomplicated; F19.20 Other psychoactive substance dependence, uncomplicated; G47.00 Insomnia, unspecified; G81.94 Hemiplegia, unspecified affecting left nondominant side; I25.10 Atherosclerotic heart disease of native coronary artery without angina pectoris; I50.22 Chronic systolic (congestive) heart failure; K21.9 Gastro-esophageal reflux disease without esophagitis; K59.00 Constipation, unspecified; K74.60 Unspecified cirrhosis of liver; N18.9 Chronic kidney disease, unspecified; N40.0 Benign prostatic hyperplasia without lower urinary tract symptoms; F10.10 Alcohol abuse, uncomplicated; F15.10 Other stimulant abuse, uncomplicated; B19.20 Unspecified viral hepatitis C without hepatic coma; C64.9 Malignant neoplasm of unspecified kidney, except renal pelvis; Z86.73 Personal history of transient ischemic attack (TIA), and cerebral infarction without residual deficits; Z59.0 Homelessness; Z79.01 Long term (current) use of anticoagulants; Z79.4 Long term (current) use of insulin; Z79.82 Long term (current) use of aspirin; Z79.899 Other long term (current) drug therapy; Z85.528 Personal history of other malignant neoplasm of kidney; Z90.49 Acquired absence of other specified parts of digestive tract; Z95.810 Presence of automatic (implantable) cardiac defibrillator; Z98.890 Other specified postprocedural states; Z68.32 Body mass index [BMI] 32.0-32.9, adult
CPT/HCPCS: 70450; 82271; 83735; 85014; 85018; 86850; 86900; 86901; 86923; 87081; 92507; 92521; 93005; 97110; 97112; 97116; 97163; 97166; 97530; 97535; 99366; C8929; G0482; J0885; J1815; J1940; J7040; J8540; P9016